=== PATIENT | male | born 1960 | race African-American/Black ===

== ENCOUNTER 2020-06-30 20:58 | Emergency (ER) | payer SELFPAY ==
[2020-06-30] MEDS ORDERED: cefTRIAXone\\ROCEPHIN 1 GM VIAL ONE (21:41)
[2020-06-30] MEDS ORDERED: Lidocaine 1% (PF) 30 ML VIAL ONE (21:41)
[2020-06-30] MEDS ORDERED: Naproxen 500 MG TAB ONE (21:41)
[2020-06-30 21:43] LABS: Bilirubin Negative (Negative); Blood, Urine Trace (Negative); Clarity Clear (Clear); Glucose, Urine (Dipstick) Negative (Negative); Ketone, Urine Negative (Negative); Leukocyte Negative (Negative); Nitrite Negative (Negative); Protein, Urine (Dipstick) Negative (Neg-Trace); Specific Gravity, Urine 1.025 (1.005-1.030); Urobilinogen 0.2 mg/dL (Less than 2)
[2020-06-30 21:47] LABS: Bacteria/HPF None Seen HPF (None Seen); RBC/HPF 0-3 HPF (0-3); Squamous Epithelial None Seen HPF (0-3); WBC/HPF None Seen HPF (0-3)
[2020-07-01 23:29] LABS: Chlamydia by PCR Not Detected (NotDetected); GC by PCR Not Detected (NotDetected)
== END 2020-06-30 23:20 | disposition short-term general hospital (02) ==
LOC: NAV ERS 20:58
DX: N45.1 Epididymitis (principal); F17.210 Nicotine dependence, cigarettes, uncomplicated
CPT/HCPCS: 81003; 81015; 87491; 87591; 96372; 99284; J0696; J2001